=== PATIENT | male | born 1975 | race Caucasian/White ===

== ENCOUNTER 2019-04-09 20:20 | Emergency (ER) | payer SELFPAY ==
[~2019-04-09] VITALS: Ht 188 cm; Wt 78.2 kg
[2019-04-09 22:13] VITALS: BP 138/77
== END 2019-04-09 22:16 | disposition home or self-care (01) ==
LOC: EMS 20:22
DX: S61.412D Laceration without foreign body of left hand, subsequent encounter (principal); Z48.02 Encounter for removal of sutures; F12.90 Cannabis use, unspecified, uncomplicated; F15.90 Other stimulant use, unspecified, uncomplicated; F17.210 Nicotine dependence, cigarettes, uncomplicated; X58.XXXD Exposure to other specified factors, subsequent encounter

== ENCOUNTER 2019-04-18 14:34 | Emergency (ER) | payer SELFPAY ==
[~2019-04-18] VITALS: Ht 182.9 cm; Wt 78.2 kg
[2019-04-18] MEDS ORDERED: KETOROLAC TROMETHAMINE 30 MG/ML VIAL IM ONE (15:00)
[2019-04-18 16:58] VITALS: BP 121/74
== END 2019-04-18 17:00 | disposition home or self-care (01) ==
LOC: EMS 14:37
DX: S83.91XA Sprain of unspecified site of right knee, initial encounter (principal); S63.92XA Sprain of unspecified part of left wrist and hand, initial encounter; F17.210 Nicotine dependence, cigarettes, uncomplicated; F12.90 Cannabis use, unspecified, uncomplicated; F19.90 Other psychoactive substance use, unspecified, uncomplicated; W19.XXXA Unspecified fall, initial encounter; Y93.89 Activity, other specified; Y92.89 Other specified places as the place of occurrence of the external cause; Y99.8 Other external cause status
CPT/HCPCS: 73130; 73562; 96372; 99283; J1885